=== PATIENT | female | born 1975 | race Hispanic/Latino ===

== ENCOUNTER 2018-06-14 12:45 | Day surgery (SDC) | payer MEDICARE ==
[2018-06-14] MEDS ORDERED: Iohexol 240 (50 ml) ONE ×2 (14:43→15:05)
[2018-06-14] MEDS ORDERED: Lidocaine 2% MPF (5 ml) Inj ONE ×2 (14:43→15:05)
[2018-06-14] MEDS ORDERED: Bupivacaine 0.75% Inj(30mL) ONE ×2 (14:44→15:05)
[2018-06-14] MEDS ORDERED: Midazolam 2 MG/2 ML VIAL ONE (15:16)
[2018-06-14] MEDS ORDERED: Propofol 10 mg/ml Inj (20 ML) ONE (15:17)
[2018-06-14] MEDS ORDERED: Lactated Ringer's 1,000 ML IV SCH (16:00)
[2018-06-14 16:42] VITALS: BP 147/90; PULSE 80; RESP 20; TEMP 97.8; O2SAT 96
--- NOTE | 2018-06-15 04:24 | OP ---
Copied To: Cheryl Rosado MD Attending MD: Cheryl Rosdao MD PROCEDURE DATE: 06/14/2018 SURGEON: Cheryl Rosado MD OPERATIVE PROCEDURE: Epidural steroid injection, interlaminar approach with fluoroscopic guidance. INJECTATE: A total of 5 mL consisting of 2.5 mL of Kenalog (40 mg/mL)/Celestone (6 mg/mL) with the remainder of saline. FINDINGS: Flow of contrast was excellent along and into the epidural space. PROCEDURE: The patient was prepped and draped in a sterile fashion in the prone position after informed consent was signed and all patient questions were answered including the risks, benefits, alternative treatment options, and prognosis. The risks include but are not limited to infection, allergic reaction, nerve damage, stroke, paralysis, epidural hematoma, syncope, headache, respiratory or cardiac arrest, spinal cord injury, and scar formation. Using a paramedian approach from the side mentioned above, the region overlying the inferior lamina was localized under fluoroscopic visualization and the soft tissues overlying this structure were infiltrated with 4 mL of 1% lidocaine without epinephrine. A #17 gauge Tuohy needle was inserted into the epidural space using a paramedian approach. The epidural space was localized using loss of resistance after negative aspirate for air, blood, and CSF. A 2 mL volume of Omnipaque-300 was injected into the epidural space and the flow of contrast was observed. Radiographs were obtained for documentation purposes. The injectate was administered into the level noted above. The patient tolerated the procedure well and was discharged after an appropriate period of observation. If there are any complications, the patient was instructed to call us. The patient is to follow up with the requesting physician in one to two weeks. Cheryl Rosado MD
--- NOTE | 2018-06-15 09:18 | RAD ---
Date of service: 06/14/2018 PROCEDURE: Intraoperative Fluoroscopy. HISTORY: CERVICAL RADICULOPATHY FINDINGS: Fluoroscopic assistance was provided for cervical C7-T1 injection.. Please refer to the operative report from YFN Caldwell, , MD [place].
== END 2018-06-14 16:43 | disposition home or self-care (01) ==
LOC: C.SDS 12:45
PROVIDERS: ATTEND Neuromusculoskeletal Medicine, Sports Medicine
DX: M54.12 Radiculopathy, cervical region (principal)
CPT/HCPCS: 62321; J1100; J2250; J2704; Q9966